=== PATIENT | female | born 1955 | race Caucasian/White ===

== ENCOUNTER 2016-05-31 13:23 | Emergency (ER) | payer OTHER ==
[~2016-05-31] VITALS: Ht 180.3 cm; Wt 100.0 kg
[2016-05-31 13:24] VITALS: BP 171/81; PULSE 112; RESP 20; TEMP 98.2; O2SAT 98
--- NOTE | 2016-05-31 14:28 | PD ---
HPI Chief Complaint: Wound/Suture/Staple Re-Check Time Seen by Provider: 14:27 Travel History International Travel<30 days: No Contact w/Intl Traveler<30days: No Traveled to known affect area: No History of Present Illness HPI Patient comes in for evaluation of head injury that occurred approximately 3 hours ago. Patient states she was walking when some metal fell from a sign that was hanging from a bridge hitting her in the right frontal lobe causing a laceration. Patient states she cleaned and placed a Band-Aid. Denies any loss of consciousness, being on any blood thinners, headache, change in vision, vomiting, numbness or tingling anywhere. Patient reports her tetanus shot is up to date. [facility] Past Medical History Thyroid Disease: Yes Social History Alcohol Use: No Tobacco Use: No Substance Use: No Allergies-Medications (Allergen,Severity, Reaction): Coded Allergies: No Known Allergies (Unverified , 05/31/16) Reported Meds & Prescriptions Reported Meds & Active Scripts Active Reported Synthroid (Levothyroxine Sodium) 25 Mcg Tab 25 Mcg PO DAILY Cymbalta DR (Duloxetine HCl) 60 Mg Capdr 60 Mg PO TID Review of Systems Except as stated in HPI: all other systems reviewed are Neg Physical Exam Narrative GENERAL: Well-developed, well nourished, in no acute distress, and non-ill appearing. SKIN: Warm and dry. Laceration of the right frontal lobe. No foreign body noted. HEAD: Atraumatic. Normocephalic. EYES: Pupils equal and round. EOMI. No scleral icterus. No injection or drainage. ENT: No nasal bleeding or discharge. Mucous membranes pink and moist. NECK: Trachea midline. Supple. No nuclear rigidity. CRESPIRATORY: No accessory muscle use. No respiratory distress. MUSCULOSKELETAL: No obvious deformities. No clubbing. No cyanosis. No edema. Full range of motion. NEUROLOGICAL: Awake and alert. No obvious cranial nerve deficits. Motor grossly within normal limits. Normal speech. PSYCHIATRIC: Appropriate mood and affect; insight and judgment normal. Data Data Last Documented VS Vital Signs Date Time Temp Pulse Resp B/P Pulse Ox O2 Delivery O2 Flow Rate FiO2 05/31/16 13:24 98.2 112 20 171/[address] Brain W/O Iv Contrast(Rout) (05/31/16 ) Lidocai-Epi 1%-1:100,000 Inj (Xylocaine- (05/31/16 15:15) MDM Medical Decision Making Medical Screen Exam Complete: Yes Emergency Medical Condition: Yes Differential Diagnosis Fracture, intracranial hemorrhage, laceration, head injury, other Narrative Course Patient presents with minor head injury and laceration. There was no evidence of cranial or intracranial injury noted on CT of the head. The patient has been behaving normally and no notable altered mental status. [place] score of 15. The neurologic exam is normal. There is no clinical evidence to support intracranial injury or bleed. There is no c-spine pain or tenderness and no significant distracting injury to suggest associated cervical spine injury. The patient suffered laceration to the face. The laceration appeared clean and approximated well. There was no evidence to suggest foreign bodies. Visual and tactile exams were unremarkable. There was no evidence of neurovascular injury as well. The patient was irrigated with copious sterile normal saline and primary repair was performed. Please see procedure note. The patient was given signs and symptom warnings for infection, such as increasing pain, redness, swelling, associated heat, pus or fever. The patient was given instructions for timely follow up. The patient agreed with plan of care. Patient in no obvious distress upon re-evaluation. All pertinent Radiology result(s) discussed with patient. Any questions/concerns in reference to patient diagnosis/condition discussed and clarified prior to patient's discharge. Reinforced sheer importance of close follow up with patient's primary physician or primary care clinic. Instructed patient to return to ED immediately, if symptoms return/worsen. Pt showed understanding of above instructions. Further instructions and recommendations were detailed in discharge paperwork. Pt ambulated without difficulty out of ED at discharge. Procedures Procedure Narrative LACERATION REPAIR LOCATION: Right frontal lobe near hairline LENGTH: Approximately 2 cm in total length NUMBER OF STITCHES/WILIAM: 3 buried simple mattress REPAIR: Verbal consent was obtained. The area of the laceration was cleaned and prepped. The laceration was infiltrated with lidocaine with epi. The wound was copiously irrigated and explored without evidence of foreign body, bony involvement, ligament injury, tendon injury, or neurovascular injury. The wound was closed using 5-0 Vicryl. This was a single layer repair. A sterile dressing was applied by nurse. The patient was advised to keep the affected area as clean and dry as possible using soap and water. There were no complications. Patient tolerated the procedure well. Diagnosis Primary Impression: Head injury Qualified Code: S09.90XA - Head injury, initial encounter Additional Impression: Facial laceration Qualified Code: S01.81XA - Facial laceration, initial encounter Patient Instructions: Acute Wound Care (ED), Care For Your Absorbable Stitches (ED), Facial Laceration (ED), General Instructions, Head Injury (ED) Additional Instructions: Follow-up with your primary care physician in 3-5 days for evaluation. Keep wound dry and clean as possible using soap and water. Do not soak or submerge your head. Return to the emergency department if symptoms get worse. Disposition: 01 DISCHARGE HOME Condition: Stable You Franco May 31, 2016 14:28
[2016-05-31] MEDS ORDERED: SYNT25TA PO (14:34)
[2016-05-31] MEDS ORDERED: CYMB60CA PO (14:34)
[2016-05-31] MEDS ORDERED: LIDOCAINE 1%/EPINEPHrine 1:100,000 SOLN 20 ML VIAL INFIL ONE (15:15)
--- NOTE | 2016-05-31 15:19 | RADRPT ---
EXAM DATE/TIME: 05/31/2016 15:10 [facility] COMPARISON: No previous studies available for comparison. INDICATIONS : Head injury. Right frontal abrasion. RADIATION DOSE: 43.13 CTDIvol (mGy) MEDICAL HISTORY : None SURGICAL HISTORY : None. ENCOUNTER: Initial ACUITY: 1 day PAIN SCALE: 2/10 LOCATION: Right frontal TECHNIQUE: Multiple contiguous axial images were obtained of the head. Using automated exposure control and adj ustment of the mA and/or kV according to patient size, radiation dose was kept as low as reasonably a chievable to obtain optimal diagnostic quality images. FINDINGS: CEREBRUM: The ventricles are normal for age. No evidence of midline shift, mass lesion, hemorrhage or acute in farction. No extra-axial fluid collections are seen. POSTERIOR FOSSA: The cerebellum and brainstem are intact. The 4th ventricle is midline. The cerebellopontine angle i s unremarkable. EXTRACRANIAL: The visualized portion of the orbits is intact. SKULL: The calvaria is intact. No evidence of skull fracture. CONCLUSION: No acute disease. Shiv Cardoza MD on May 31, 2016 at 15:16 Board Certified Radiologist. This report was verified electronically.
== END 2016-05-31 16:09 | disposition home or self-care (01) ==
LOC: NEPB 13:23
DX: S01.81XA Laceration without foreign body of other part of head, initial encounter (principal); E07.9 Disorder of thyroid, unspecified; W20.8XXA Other cause of strike by thrown, projected or falling object, initial encounter; Y93.01 Activity, walking, marching and hiking; Y99.8 Other external cause status
CPT/HCPCS: 12011; 70450